=== PATIENT | female | born 1990 | race Two or more races ===

== ENCOUNTER 2022-06-02 11:13 | Outpatient (CLI) | payer OTHER ==
[~2022-06-02 11:13] MED LIST: FOLIC ACID0.8 M1; LOVENOX60 MG/0.6 SUBCUTANEO; NIFEDIPINE20 MG PO; PRENATAL TABLE1 EAC1; Procardia Xl 30MG TA PO
== END 2022-06-02 12:12 | disposition home or self-care (01) ==
LOC: NST 11:13
PROVIDERS: ATTEND Obstetrics & Gynecology
DX: Z34.83 Encounter for supervision of other normal pregnancy, third trimester (principal)

== ENCOUNTER 2022-06-11 09:01 | Inpatient (IN) | payer OTHER ==
[~2022-06-11] VITALS: Ht 165.1 cm; Wt 2.7 kg
[2022-06-11] MEDS ORDERED: HEPARIN SO1000 UNIT/ SUBCUTANEO (09:34)
[2022-06-12] MEDS ORDERED: ENOXAPARIN60 MG/0.6 (08:40)
== END 2022-06-13 11:46 | disposition home or self-care (01) | DRG 785 ==
LOC: OB/GYN 09:01 → LDR 09:01 → O/R 16:42 → OB/GYN 17:16
PROVIDERS: ADMIT Obstetrics & Gynecology; ATTEND Obstetrics & Gynecology
PROC: 0UB70ZZ Excision of Bilateral Fallopian Tubes, Open Approach (ICD-10-PCS; 2022-06-11)
PROC: 4A1HXCZ Monitoring of Products of Conception, Cardiac Rate, External Approach (ICD-10-PCS; 2022-06-11)
PROC: 10D00Z1 Extraction of Products of Conception, Low, Open Approach (ICD-10-PCS; principal; 2022-06-11 17:00)
DX: O82 Encounter for cesarean delivery without indication (principal); Z30.2 Encounter for sterilization; Z37.0 Single live birth; Z20.822 Contact with and (suspected) exposure to COVID-19